=== PATIENT | female | born 1990 | race Two or more races ===

== ENCOUNTER 2022-05-14 18:52 | Inpatient (IN) | payer MEDICAID, OTHER ==
[~2022-05-14] VITALS: Ht 154.9 cm; Wt 30.9 kg
--- NOTE | 2022-05-14 20:15 | NUR ---
Patient walked into ER into ER c/o intermitten abdominal pain radiating to back with N/V that started 3 days ago but worse in the last 3hrs. Patient state she was at [facility] ER 5 days ago and was Dx with gallstone.
[2022-05-14] MEDS ORDERED: ONDANSETRON 4 MG/2 ML VIAL IV ONE (21:15)
[2022-05-14] MEDS ORDERED: HYDROMORPHONE 1 MG/1 ML DISP.SYRIN IV ONE (21:15)
[2022-05-14] MEDS ORDERED: ONDANSETRON 4 MG/2 ML VIAL ONE (21:30)
[2022-05-14] MEDS ORDERED: HYDROMORPHONE 1 MG/1 ML DISP.SYRIN ONE (21:31)
[2022-05-14 21:42] LABS: HEMATOCRIT 42.4 % (31.2-41.9); MEAN CORPUSCULAR HEMOGLOBIN 28.5 uug (24.7-32.8); MEAN CORPUSCULAR VOLUME 85.5 fL (75.5-95.3); PLATELET COUNT (AUTO) 240 K/uL (179-408)
[2022-05-14 21:45] LABS: CREATININE 0.7 mg/dL (0.6-1.3); POTASSIUM 4.1 mmol/L (3.5-5.1)
[2022-05-14 21:50] LABS: BILIRUBIN,DIRECT 4.2 mg/dL (0.0-0.2); BILIRUBIN,TOTAL 5.7 mg/dL (0.2-1.0); TOTAL PROTEIN, SERUM 8.3 g/dL (6.4-8.2)
[2022-05-14 22:09] LABS: *BILIRUBIN,URIN 3+ (NEGATIVE); *CLARITY,URINE CLEAR (CLEAR); *COLOR,URINE YELLOW (YELLOW); *KETONES,URINE 4+ (NEGATIVE); *UROBILINOGEN,URINE 0.2 E.U./dl (NORMAL); LEUKOCYTE ESTERASE ,URINE TRACE (NEGATIVE); NITRITE, URINE NEGATIVE (NEGATIVE); PH,URINE 5.5 (5.0-8.0); UGLUCOSE NEGATIVE (NEGATIVE)
[2022-05-14 22:10] LABS: *BLOOD, URINE TRACE (NEGATIVE)
--- NOTE | 2022-05-14 22:22 | NUR ---
IPA/Jose E called, information needed provided.
[2022-05-14 22:25] LABS: BACTERIA,URINE MODERATE /HPF (NONE SEEN); SQUAMOUS EPITHELIAL CELL,UR MANY /HPF (NONE SEEN)
[2022-05-14] MEDS ORDERED: KETOROLAC TROMETHAMINE 15 MG INJ IVP ONE (22:45)
[2022-05-14] MEDS ORDERED: KETOROLAC TROMETHAMINE 15 MG INJ ONE (22:47)
--- NOTE | 2022-05-15 02:08 | NUR ---
Patient asleep in bed. Appears comfortable. No complain of pain at this time.
--- NOTE | 2022-05-15 03:02 | NUR ---
Epic panel call placed, spoke to Vianey , she stated she will get a hold of Dr. Vaz for admitting.
--- NOTE | 2022-05-15 03:07 | NUR ---
Dr. Collado on panel call with Dr. Vaz. Patient accepted for admission to [facility] unit Dx. Gallstone.
[2022-05-15] MEDS ORDERED: ACETAMINOPHEN 325 MG TABLET PO PRN (03:15)
[2022-05-15] MEDS ORDERED: KETOROLAC TROMETHAMINE 15 MG INJ ONE (03:39)
[2022-05-15] MEDS ORDERED: KETOROLAC TROMETHAMINE 15 MG INJ IVP ONE (03:45)
--- NOTE | 2022-05-15 04:20 | NUR ---
Pt. admitted to [facility] unit, room 327, under care of Dr. Vaz. Report given to DEAN Stanford. Belonging List completed.
[2022-05-15] MEDS: IV NS 1000 ML 1,000 ML IV SCH ×3 (04:33→22:30)
--- NOTE | 2022-05-15 05:17 | NUR ---
Admitted pt to [facility] ER accompanied by Rocio MORAN via wheelchair. Pt is alert and oriented x4, able to make needs known. On room air, no respiratory distress. Noted with RUQ abdominal pain 6/10, denies N/V. Initial and full body assessment done, skin is intact. IV acces on LAC G#20, patent and intact flushed with NS. Started NS 1L running at 100 ml/hr, no s/sx of infiltration on IV site. All needs attended. Call light placed within reach, oriented to room. Will continue to monitor.
[2022-05-15] MEDS: MORPHINE SULFATE 2 MG/1 ML DISP.SYRIN IV PRN ×4 (05:39→23:19)
[2022-05-15 07:44] LABS: BILIRUBIN,DIRECT 3.5 mg/dL (0.0-0.2); BILIRUBIN,TOTAL 4.9 mg/dL (0.2-1.0); TOTAL PROTEIN, SERUM 7.3 g/dL (6.4-8.2)
--- NOTE | 2022-05-15 08:38 | NUR ---
Pt is a/o x 4, no complaint of paion at this time. Pt has been kept NPO. Pt was taken to nuclear medicine for HIDA scan.
[2022-05-15 12:00] VITALS: BP 98/51
--- NOTE | 2022-05-15 16:14 | NUR ---
Patient returned from [facility] from MRCP without contrast.
[2022-05-15 17:22] VITALS: BP 99/58
[2022-05-15] MEDS: HEPARIN SODIUM,PORCINE 5,000 UNITS/ML VIAL SQ SCH (17:52)
--- NOTE | 2022-05-15 19:15 | NUR ---
Shared MRI results with Dr. Hubbard, per MD there are stones in the common bile duct and pt may need an ERCP by GI doctor before Dr. Hubbard can remove gallbladder. Notified Dr. Bello. Placed pt on clear liquid diet until further notice. Will keep NPO at midnight.
[2022-05-15 20:49] VITALS: BP 103/63
--- NOTE | 2022-05-15 22:00 | NUR ---
Sam Jin NP discharge patient to [facility] in the morning for ERCP. Dr. Guillen (GI) aware.
[2022-05-16 04:50] VITALS: BP 110/65
[2022-05-16 06:18] LABS: HEMATOCRIT 37.7 % (31.2-41.9); MEAN CORPUSCULAR HEMOGLOBIN 29.1 uug (24.7-32.8); MEAN CORPUSCULAR VOLUME 85.5 fL (75.5-95.3); PLATELET COUNT (AUTO) 215 K/uL (179-408)
--- NOTE | 2022-05-16 06:20 | NUR ---
Patient c/o severe pain on RUQ given Morphine IV with good effect, slept well after medication. NPO post midnight observed.
[2022-05-16 06:25] LABS: TOTAL PROTEIN, SERUM 6.9 g/dL (6.4-8.2)
[2022-05-16 06:27] LABS: CREATININE 0.7 mg/dL (0.6-1.3); POTASSIUM 3.5 mmol/L (3.5-5.1); TOTAL PROTEIN, SERUM 6.9 g/dL (6.4-8.2)
[2022-05-16] MEDS ORDERED: PIPERACILLIN SODIUM/TAZOBACTAM 3.375 G in IV DEXTROSE 5% 50 ML IV SCH (07:45)
[2022-05-16] MEDS: PIPERACILLIN SODIUM/TAZOBACTAM 3.375 G in IV DEXTROSE 5% 100 ML IV SCH ×2 (08:26→15:09)
[2022-05-16] MEDS: HEPARIN SODIUM,PORCINE 5,000 UNITS/ML VIAL SQ SCH ×2 (08:27→16:40)
[2022-05-16] MEDS: IV NS 1000 ML 1,000 ML IV SCH ×2 (08:33→19:46)
[2022-05-16] MEDS: MORPHINE SULFATE 4 MG/1 ML DISP.SYRIN IV PRN ×2 (10:14→16:39)
[2022-05-16 12:00] VITALS: BP 122/69
[2022-05-16] MEDS: ONDANSETRON 4 MG/2 ML VIAL IV PRN ×2 (15:08→23:18)
[2022-05-16 16:18] VITALS: BP 131/71
--- NOTE | 2022-05-16 19:13 | NUR ---
npo after midnight for procedure in am at [facility] p/u 0530 procedure at 1000
[2022-05-16 20:00] VITALS: BP 100/58
--- NOTE | 2022-05-16 23:46 | NUR ---
Patient c/o nausea, zofran IV given. Instructed patient that she is NPO - NOTHING BY MOUTH, stated understanding.
[2022-05-17] MEDS: PIPERACILLIN SODIUM/TAZOBACTAM 3.375 G in IV DEXTROSE 5% 100 ML IV SCH (00:06)
[2022-05-17 05:10] VITALS: BP 107/71
--- NOTE | 2022-05-17 05:19 | NUR ---
Patient transferred to [facility] for ERCP, transported by [facility] staff. Left in stable condition, awake alert and oriented x 4, in no acute distress. Denies pain or discomfort at this time. Belongings and discharge papers given.
== END 2022-05-17 05:20 | disposition short-term general hospital (02) ==
LOC: ER 18:52 → MEDSURG3 05-15 04:05
PROVIDERS: ADMIT Nurse Practitioner Acute Care; ATTEND Nurse Practitioner Acute Care
DX: K80.50 Calculus of bile duct without cholangitis or cholecystitis without obstruction (principal); E66.9 Obesity, unspecified; Z20.822 Contact with and (suspected) exposure to COVID-19; Z68.30 Body mass index [BMI] 30.0-30.9, adult
CPT/HCPCS: 36415; 74181; 78445; 83690; 84100; 85025; 85730; 87086; A4663; A9537; G0378; J1170; J1644; J1885; J2270; J2405; J2543; J7040